=== PATIENT | female | born 1975 | race Caucasian/White ===

== ENCOUNTER 2018-04-15 11:46 | Emergency (ER) | payer OTHER ==
[~2018-04-15] VITALS: Ht 172.7 cm; Wt 86.0 kg
[2018-04-15] MEDS ORDERED: VITAMIN D31000 IU PO (11:57)
[2018-04-15] MEDS ORDERED: CLARITIN10 M1 PO (11:57)
[2018-04-15] MEDS ORDERED: FLONASE ALLERG9.9 ML NS (11:58)
[2018-04-15 12:24] LABS: BASO # 0.1 (0.02-0.10); EOS # 0.1 (0.04-0.40); EOS % 0.7 % (1.0-5.0); HEMATOCRIT 40.8 % (37.0-47.0); HEMOGLOBIN 13.6 g/dL (12.5-16.0); LYMPH# 1.7 (1.50-4.00); MEAN CELL VOLUME 89 fl (78-100); MEAN CORPUSCULAR HEMOGLOBIN 30 pg (27-31); MEAN CORPUSCULAR HGB CONC 33 g/dL (33-37); MEAN PLATELET VOLUME 10.6 fl (7.4-10.4); MONO # 1.1 (0.20-0.80); NEU # 7.8 (1.40-6.50); PLATELET COUNT 255 K/mm3 (130-400); RED BLOOD COUNT 4.57 M/mm3 (4.10-5.30); RED CELL DISTRIBUTION WIDTH 12.2 % (11.5-14.5); WHITE BLOOD COUNT 10.7 K/mm3 (4.8-10.8)
[2018-04-15 12:35] LABS: ALBUMIN 4.4 g/dL (3.5-5.0); BUN/CREATININE RATIO 12.7 (6.0-26.0); CALCIUM 9.6 mg/dL (8.4-10.2); TOTAL BILIRUBIN 1.8 mg/dL (0.2-1.3); TOTAL PROTEIN 8.5 g/dL (6.3-8.2)
[2018-04-15 12:57] LABS: URINE COLOR YELLOW
[2018-04-15 12:58] LABS: URINE APPEARANCE HAZY; URINE BILIRUBIN NEGATIVE (NEGATIVE); URINE BLOOD TRACE (NEGATIVE); URINE GLUCOSE NEGATIVE (NEGATIVE); URINE KETONE NEGATIVE (NEGATIVE); URINE LEUKOCYTE ESTERASE TRACE (NEGATIVE); URINE NITRATE NEGATIVE (NEGATIVE); URINE PROTEIN(semi-quant) NEGATIVE (NEGATIVE); URINE UROBILINOGEN NORMAL (NORMAL)
[2018-04-15] MEDS ORDERED: NORCO 325 MG-51 TA1 PO (13:37)
[2018-04-15 13:55] VITALS: BP 116/74
== END 2018-04-15 13:55 | disposition home or self-care (01) ==
LOC: ED 11:46
PROVIDERS: Family Medicine
DX: R07.89 Other chest pain (principal); M54.9 Dorsalgia, unspecified; R10.12 Left upper quadrant pain
CPT/HCPCS: J1885

== ENCOUNTER → 2018-04-27 | Outpatient (CLI) | payer OTHER ==
[2018-04-15 13:55] VITALS: BP 116/74
[~2018-04-27] MED LIST: CLARITIN10 M1 PO; FLONASE ALLERG9.9 ML NS; NORCO 325 MG-51 TA1 PO; VITAMIN D31000 IU PO
== END ==
LOC: RAD 15:29
DX: J90 Pleural effusion, not elsewhere classified (principal)

== ENCOUNTER 2021-05-31 10:07 | Emergency (ER) | payer OTHER ==
[2021-05-31] MEDS ORDERED: NORCO 325 MG-51 TA1 PO (12:38)
[2021-05-31 12:46] VITALS: BP 115/72
== END 2021-05-31 12:47 | disposition home or self-care (01) ==
LOC: ED 10:07
DX: S52.572A Other intraarticular fracture of lower end of left radius, initial encounter for closed fracture (principal); R07.89 Other chest pain; W01.0XXA Fall on same level from slipping, tripping and stumbling without subsequent striking against object, initial encounter
CPT/HCPCS: J1885

== ENCOUNTER → 2022-03-08 | Outpatient (CLI) | payer OTHER | LOC: LAB 14:25 | DX: A04.8 Other specified bacterial intestinal infections (principal) ==

== ENCOUNTER → 2023-10-24 | Outpatient (CLI) | payer OTHER | LOC: MAMMO 14:30 | DX: Z12.31 Encounter for screening mammogram for malignant neoplasm of breast (principal) ==

== ENCOUNTER → 2024-10-29 | Outpatient (CLI) | payer OTHER | LOC: MAMMO 14:45 | DX: Z12.31 Encounter for screening mammogram for malignant neoplasm of breast (principal); N64.89 Other specified disorders of breast ==

== ENCOUNTER → 2024-11-27 | Outpatient (CLI) | payer OTHER | LOC: MAMMO 06:57 | DX: N60.01 Solitary cyst of right breast (principal); N83.201 Unspecified ovarian cyst, right side; Z97.5 Presence of (intrauterine) contraceptive device ==